=== PATIENT | female | born 1970 | race Hispanic/Latino ===

== ENCOUNTER 2016-09-21 12:25 | Emergency (ER) | payer OTHER ==
[~2016-09-21] VITALS: Ht 162.6 cm; Wt 68.9 kg
[2016-09-21 12:51] LABS: ABSOLUTE BASOPHIL COUNT 0.1 /CUMM (0.0-0.2); ABSOLUTE EOSINOPHIL COUNT 0.1 /CUMM (0.0-0.7); ABSOLUTE GRANULOCYTE CT 7.2 /CUMM (1.4-6.5); ABSOLUTE LYMPH COUNT 3.4 /CUMM (1.2-3.4); ABSOLUTE MONOCYTE COUNT 0.8 /CUMM (0.10-0.60); BASOPHIL % 0.5 % (0.0-2.0); EOSINOPHIL % 1.2 % (0-5); HEMATOCRIT 42.8 % (37-47); MEAN CORPUSCULAR HGB 29.4 PG (27.0-31.0); MEAN CORPUSCULAR HGB CONC 33.2 G/DL (33.0-37.0); MEAN CORPUSCULAR VOLUME 88.5 FL (81.0-99.0); MEAN PLATELET VOLUME 8.7 FL (7.4-10.4); PLATELET COUNT 356 /CUMM (130-400); RBC DISTRIBUTION WIDTH 13.3 % (11.5-14.5); RED BLOOD CELL CT 4.83 /CUMM (4.20-5.40); WHITE BLOOD CELL COUNT 11.6 /CUMM (4.8-10.8)
--- NOTE | 2016-09-21 13:22 | ED CARDIAC/CP/PALPITATIONS ---
History of Present Illness General Chief Complaint: Chest Pain Stated Complaint: CP CROOKS DIZZINESS Source: patient Exam Limitations: no limitations Vital Signs & Intake/Output Vital Signs & Intake/Output Vital Signs Date Time Temp Pulse Resp B/P B/P Pulse O2 O2 Flow FiO2 Mean Ox Delivery Rate 09/21 1727 98.9 85 16 121/81 97 Room Air 09/21 1625 97.5 78 18 136/80 98 Room Air 09/21 1358 97.3 76 20 154/100 09/21 1245 98 Room Air 09/21 1236 98.5 105 16 193/100 97 Room Air Allergies Coded Allergies: acetaminophen (From PERCOCET) (AMS 09/21/16) oxycodone (From PERCOCET) (AMS 09/21/16) Reconcile Medications Aspirin (Ecotrin*) 81 MG TABLET.DR 1 TAB PO DAILY HEART/BLOOD (Reported) Lisinopril 5 MG TABLET 15 MG PO DAILY BP (Reported) Meclizine HCl 25 MG TABLET 1 TAB PO DAILY DIZZINESS (Reported) Triage Note: PT STATES SHE IS HAVING CHEST PAIN THAT STARTED A FEW WEEKS AGO BUT GOT WORSE THAT NIGHT. PT STATES SHE ALSO HAS A CROOKS. PT STATES 1 MONTH AGO SHE FELT VERY DIZZY,. PT CALLED HER PCP AND TOLD HER TO COME HERE. Triage Nurses Notes Reviewed? yes Onset: Abrupt Duration: day(s):, week(s): Timing: recent history Quality/Severity: moderate, severe Location: central Radiation: no radiation Activities at Onset: emotional stress HPI: 46-year-old female comes into emergency room with primarily complaints of headache dizziness and chest pain. Patient reports that she's been experiencing dizziness and headache for the last couple weeks. Patient feels like she is getting a fall over. Denies any fever or vomiting. Last night she got into a argument with somebody and started to experience some chest pain. Central. Nonradiating. Sharp. Patient described it as feeling that her chest is going to blow out. She denies any prior history of CO. History of hypertension only. Nonsmoker. Her aunt had an CO at 38 but no other family history of coronary disease that she is aware of. Patient called her primary care doctor who told her to come to the hospital to get checked out. Denies any abdominal pain. Denies any urinary symptoms. Denies any other associated symptoms at this time. (FABIAN DE PAZ) Past History Travel History Traveled to [place] past 21 day No Medical History Any Pertinent Medical History? see below for history Cardiovascular: hypertension Surgical History Surgical History: appendectomy, hysterectomy, tubal ligation, 4 hernia surgeries Psychosocial History What is your primary language Bermudian Tobacco Use: Never used ETOH Use: denies use Illicit Drug Use: denies illicit drug use Family History Hx Contributory? No (FABIAN DE PAZ) Review of Systems Review of Systems Constitutional: Reports: no symptoms. EENTM: Reports: no symptoms. Respiratory: Reports: see HPI. Cardiovascular: Reports: see HPI. GI: Reports: no symptoms. Genitourinary: Reports: no symptoms. Musculoskeletal: Reports: no symptoms. Skin: Reports: no symptoms. Neurological/Psychological: Reports: see HPI. Hematologic/Endocrine: Reports: no symptoms. Immunologic/Allergic: Reports: no symptoms. All Other Systems: Reviewed and Negative (FABIAN DE PAZ) Physical Exam Physical Exam General Appearance: well developed/nourished, no apparent distress, alert, awake Head: atraumatic, normal appearance Eyes: Bilateral: normal appearance, PERRL, EOMI, other (horizontal nystagmus). Ears, Nose, Throat: normal pharynx, normal ENT inspection Neck: normal inspection Respiratory: normal breath sounds, no respiratory distress Cardiovascular: regular rate/rhythm, tachycardia Gastrointestinal: soft, non-tender Back: normal inspection Extremities: normal inspection, normal range of motion Neurologic/Psych: awake, alert, oriented x 3, normal gait, normal mood/affect Skin: intact, normal color Core Measures ACS in differential dx? No Severe Sepsis Present: No Septic Shock Present: No (FABIAN DE PAZ) Progress Differential Diagnosis: AMI, aortic dissection, cholecystitis, costochondritis, hyperkalemia, hypovolemia, hyperthyroid, intracranial hemorrhage, musculoskeletal pain, myocarditis, pancreatitis, pericarditis, pneumonia, pneumothorax, PSVT, pulmonary embolism, PUD/GERD, PVCs/PACs, unstable angina, V- fib/V-Tach Plan of Care: Orders Procedure Date/time Status TROPONIN LEVEL 09/21 1630 Complete EKG 09/21 1630 Active Add-on Test (ER Only) 09/21 1314 Active Telemetry/Slider Assembler 09/21 1314 Active D-DIMER 09/21 1232 Complete TROPONIN LEVEL 09/21 1227 Complete MAGNESIUM 09/21 1227 Complete COMPREHENSIVE METABOLIC PANEL 09/21 1227 Complete CHOLESTEROL 09/21 1227 Complete CBC WITHOUT DIFFERENTIAL 09/217 Complete EKG 09/21 1226 Active Laboratory Tests 09/21/16 1623: Troponin I < 0.01 09/21/16 1232: D-Dimer High Sensitivty 200 09/21/16 1230: Anion Gap 13, Estimated GFR > 60, BUN/Creatinine Ratio 18.8, Glucose 102 H, Calcium 10.1, Magnesium 2.1, Total Bilirubin 1.1, AST 19, ALT 46, Alkaline Phosphatase 92, Troponin I < 0.01, Total Protein 7.8, Albumin 4.7, Globulin 3.1, Albumin/Globulin Ratio 1.5, Cholesterol 208 H, CBC w Diff NO MAN DIFF REQ, RBC 4.83, MCV 88.5, MCH 29.4, RDW 13.3, MPV 8.7, Gran % 62.0, Lymphocytes % 29.3, Monocytes % 7.0, Eosinophils % 1.2, Basophils % 0.5, Absolute Granulocytes 7.2 H, Absolute Lymphocytes 3.4, Absolute Monocytes 0.8 H, Absolute Eosinophils 0.1 , Absolute Basophils 0.1, PUBS MCHC 33.2 Diagnostic Imaging: Viewed by Me: Radiology Read, CT Scan. Discussed w/RAD: Radiology Read, CT Scan. Radiology Impression: SERVICE DATE: 09/21/16 EXAM TYPE: CAT - CT HEAD WO IV CONTRAST EXAMINATION: CT HEAD WITHOUT CONTRAST CLINICAL INFORMATION: Headache and dizziness. COMPARISON: None TECHNIQUE: Contiguous axial imaging was performed from the skull base to vertex without intravenous administration of contrast. DLP: 613 mGy-cm FINDINGS: The brain parenchyma has normal attenuation with well-preserved denney-white matter differentiation. No evidence of cerebral edema, hemorrhage, extra-axial fluid collection, focal mass effect or midline shift. The ventricles, sulci and basilar cisterns are unremarkable. The calvarium is intact and the visualized paranasal sinuses, mastoid air cells and middle ear cavities are well aerated. There is mild degenerative subarticular cystic change at the right temporomandibular joint. The visualized portions of the orbits and globes are unremarkable. IMPRESSION: No acute intracranial pathology., EXAM TYPE: RAD - XRY-PORTABLE CHEST XRAY EXAMINATION: XR PORTABLE CHEST CLINICAL INFORMATION: Chest pain, shortness of breath and dizziness. COMPARISON: None TECHNIQUE: Portable frontal view of the chest was obtained. FINDINGS: Lungs are symmetrically expanded and clear. No pulmonary edema, pneumothorax or pleural effusion. Cardiac silhouette is normal in size. The mediastinal and hilar contours are normal. The trachea is midline in position. No acute osseous findings. IMPRESSION: No acute cardiopulmonary disease. DICTATED BY: MUKESH CARTER MD DATE/TIME DICTATED:09/21/161343 HVAC MECHANIC:CELIA Initial ED EKG: normal intervals, normal p-waves, normal QRS complex, normal sinus rhythm, rate (101) Repeat EKG: unchanged (ASHA ZACARIAS,FABIAN) Departure Departure Disposition: HOME OR SELF CARE Condition: Stable Clinical Impression Primary Impression: Atypical chest pain Secondary Impressions: Headache Referrals: BENJAMÍN NLESON,ANNIE (PCP/Family) SANKET NELSON PhD,IVÁN Harkins Additional Instructions: Follow-up with invasive manager provided. Follow-up with your primary care doctor. Return if any concerns worsening symptoms. Please go over all results of today's visit with your primary care doctor. Contact your primary care doctor to let them know you were here in the emergency room. There may be nonspecific findings which may not be related to your visit today here in the emergency room but may require further evaluation and chronic monitoring by your primary care doctor. If you had a laceration today the chance of foreign body always remains. You should follow-up with your primary care doctor for recheck in 3-5 days for a wound check. If you had an x-ray done there is a chance that a fracture could have been missed on initial read and you should follow-up with your primary care doctor for repeat x-rays if symptoms persist. If your blood pressure was elevated here in the emergency room please have rechecked by her primary care doctor within the next 48 hours by your primary care doctor. If you were prescribed a narcotic here in the emergency room or any type of controlled substances you're not allowed to drive while taking this medication or operate any type of heavy machinery. Narcotics can make you feel lightheaded dizziness nausea and can cause constipation. You may need to strip picker a stool softener. Thank you for choosing [facility] emergency room. Please return to the emergency room immediately if you have any other concerns worsening of symptoms. Departure Forms: Customer Survey General Discharge Information Comments 09/21/2016 6:19:10 PM Patient clinically looks well. Nontoxic-appearing. Reevaluated multiple times. Patient is asymptomatic upon reevaluation. No chest pain on discharge. EKG unchanged. 2 negative troponins. Follow-up with invasive manager provided. Case discussed with Dr. Lim. Understands and agrees with plan of care. No suspicion for your dissection. No suspicion for pulmonary embolism. Negative d -dimer. (FABIAN DE PAZ) PA/FORENSIC EXAMINER Co-Sign Statement Statement: ED Attending supervision documentation- [] I saw and evaluated the patient. I have also reviewed all the pertinent lab results and diagnostic results. I agree with the findings and the plan of care as documented in the PA's/FORENSIC EXAMINER's documentation. [X] I have reviewed the ED Record and agree with the PA's/FORENSIC EXAMINER's documentation. [] Additions or exceptions (if any) to the PAs/FORENSIC EXAMINER's note and plan are summarized below: [] (MEI NELSON,HOWARD Fisher) Critical Care Note Critical Care Note Critical Care Time: non-applicable (FABIAN DE PAZ)
--- NOTE | 2016-09-21 13:49 | RADIOLOGY REPORT ---
EXAMINATION: XR PORTABLE CHEST CLINICAL INFORMATION: Chest pain, shortness of breath and dizziness. COMPARISON: None TECHNIQUE: Portable frontal view of the chest was obtained. FINDINGS: Lungs are symmetrically expanded and clear. No pulmonary edema, pneumothorax or pleural effusion. Cardiac silhouette is normal in size. The mediastinal and hilar contours are normal. The trachea is midline in position. No acute osseous findings. IMPRESSION: No acute cardiopulmonary disease.
--- NOTE | 2016-09-21 14:27 | CT SCAN REPORT ---
EXAMINATION: CT HEAD WITHOUT CONTRAST CLINICAL INFORMATION: Headache and dizziness. COMPARISON: None TECHNIQUE: Contiguous axial imaging was performed from the skull base to vertex without intravenous administration of contrast. DLP: 613 mGy-cm FINDINGS: The brain parenchyma has normal attenuation with well-preserved denney-white matter differentiation. No evidence of cerebral edema, hemorrhage, extra-axial fluid collection, focal mass effect or midline shift. The ventricles, sulci and basilar cisterns are unremarkable. The calvarium is intact and the visualized paranasal sinuses, mastoid air cells and middle ear cavities are well aerated. There is mild degenerative subarticular cystic change at the right temporomandibular joint. The visualized portions of the orbits and globes are unremarkable. IMPRESSION: No acute intracranial pathology.
[2016-09-21] MEDS ORDERED: ASPIRIN EC81 M1 PO (16:57)
[2016-09-21] MEDS ORDERED: MECLIZINE HCL25 MG PO (16:57)
[2016-09-21] MEDS ORDERED: BLOOD PRESSURE PO (16:59)
[2016-09-21] MEDS ORDERED: LISINOPRIL5 M1 PO (17:00)
[2016-09-21 17:27] VITALS: BP 121/81
== END 2016-09-21 17:32 ==
LOC: ERH 12:25
PROVIDERS: Emergency Medicine
DX: R07.89 Other chest pain (principal); R51 Headache
CPT/HCPCS: 93005; 93010; 96374